=== PATIENT | male | born 1950 | race Caucasian/White ===

== ENCOUNTER 2019-09-09 10:23 | Emergency (ER) | payer OTHER ==
[~2019-09-09] VITALS: Ht 175.2 cm; Wt 90.7 kg
== END 2019-09-09 13:12 | disposition home or self-care (01) ==
LOC: ED 10:23
DX: S61.210A Laceration without foreign body of right index finger without damage to nail, initial encounter (principal); W23.0XXA Caught, crushed, jammed, or pinched between moving objects, initial encounter; Y93.89 Activity, other specified; Y92.89 Other specified places as the place of occurrence of the external cause; Y99.8 Other external cause status

== ENCOUNTER 2019-09-19 10:54 | Emergency (ER) | payer OTHER | END 2019-09-19 11:33 | disposition home or self-care (01) | LOC: ED 10:54 | DX: Z48.02 Encounter for removal of sutures (principal); F17.200 Nicotine dependence, unspecified, uncomplicated ==

== ENCOUNTER → 2024-05-26 | Day surgery (SDC) | payer OTHER ==
[~2024-05-26] VITALS: Ht 175.2 cm; Wt 68.9 kg
[~2024-05-26] MED LIST: ARIPIPRAZOLE5 MG PO; DIVALPROEX SOD250 MG PO; Lactated Ringer's Solution 1,000 ML IV ONE; Lactated Ringer's Solution 1,000 ML IV SCH; Lidocaine Hydrochloride 5 ML VIAL IV ONE; PREDNISONE10 MG PO; PROPOFOL 200 MG/20 ML VIAL IV ONE; VENT7GM INH; VITAMIN D3125 MC1 PO
[2024-05-26 08:16] VITALS: BP 146/87
[2024-05-26 09:14] VITALS: BP 101/67
[2024-05-26 09:29] VITALS: BP 101/73
[2024-05-26 09:44] VITALS: BP 89/49
== END | disposition home or self-care (01) ==
LOC: SDC 05-22 11:00
PROVIDERS: ATTEND Surgery
DX: Z12.11 Encounter for screening for malignant neoplasm of colon (principal); D12.4 Benign neoplasm of descending colon; K64.9 Unspecified hemorrhoids; F41.9 Anxiety disorder, unspecified; F32.A Depression, unspecified; Z98.42 Cataract extraction status, left eye; Z98.41 Cataract extraction status, right eye; Z87.891 Personal history of nicotine dependence; Z98.890 Other specified postprocedural states; Z79.899 Other long term (current) drug therapy